=== PATIENT | female | born 1935 | race Caucasian/White ===

== ENCOUNTER 2019-02-05 17:23 | Observation (INO) | payer MEDICARE ==
[2019-02-05] MEDS ORDERED: Sodium Chloride 0.9% 10 ML Syringe FLUSH PRN (17:35)
[2019-02-05] MEDS ORDERED: Aspirin 81 MG Tab.Chew PO ONE (17:35)
--- NOTE | 2019-02-05 18:28 | CRLCR ---
INDICATION: Chest pain TECHNIQUE: Chest radiograph 1 views COMPARISON: 02/15/2014 FINDINGS: Mediastinum: The mediastinum is normal in appearance. Mild stable cardiomegaly is noted. Lung: Fine reticular opacities are present in the left lung base, likely due to senescent pulmonary fibrosis. No sign of pleural effusion seen. No pneumothorax is identified. IMPRESSIONS: 1. Mild stable cardiomegaly is noted. 2. Fine reticular opacities are present in the left lung base, likely due to senescent pulmonary fibrosis. Dictated by Sorin Rangel MD @ 02/05/2019 6:26:55 PM Dictated by: Sorin Rangel MD @ 02/05/2019 18:27:06 (Electronically Signed)
--- NOTE | 2019-02-05 19:52 | EDM.PDOC ---
ED HPI GENERAL MEDICAL PROBLEM - General Chief Complaint: Chest Pain Stated Complaint: [facility] Time Seen by Provider: 02/05/19 17:40 Source of Information: Reports: Patient History Limitations: Reports: No Limitations - History of Present Illness INITIAL COMMENTS - FREE TEXT/NARRATIVE: pt arrived with a history of 2 hours of left arm pain left jaw pain and pain by the left shoulder blade. She has been doing alot of moving and sorting. She had this pain come on suddenly and was very persistent. She just sat real still and it finally went away. She states it was very uncomfortable. Onset: Today, Sudden, Other (persistented for 2 hours. ) Duration: Hour(s): Location: Reports: Chest Associated Symptoms: Reports: Other (shoulder and arm and jaw pain. ) - Related Data Allergies Allergy/AdvReac Type Severity Reaction Status Date / Time No Known Allergies Allergy Verified 02/15/14 14:36 Home Meds: Home Meds Cyanocobalamin (Vitamin B-12) [Vitamin B-12] 1,000 mg PO DAILY 02/15/14 [History ] Furosemide 20 mg PO DAILY 02/15/14 [History] Hydroxyurea [Hydrea] 1,000 mg PO DAILY 02/15/14 [History] Multivitamin [Multivitamins] 1 tab PO DAILY 02/15/14 [History] Simvastatin 40 mg PO BEDTIME 02/15/14 [History] Warfarin Sodium 5 mg PO DAILY 02/15/14 [History] Past Medical History HEENT History: Reports: Impaired Vision Cardiovascular History: Reports: Blood Clots/VTE/DVT, Heart Failure, Hypertension Respiratory History: Reports: Bronchitis, Recurrent, Pneumonia, Recurrent [employer] WORK[employer] History: Reports: Musculoskeletal History: Reports: Fracture Social & Family History - Tobacco Use Smoking Status *Q: Never Smoker - Caffeine Use Caffeine Use: Reports: Coffee - Alcohol Use Days Per Week of Alcohol Use: 7 Number of Drinks Per Day: 1 Total Drinks Per Week: 7 - Recreational Drug Use Recreational Drug Use: No ED ROS GENERAL - Review of Systems Review Of Systems: See Below Constitutional: Reports: No Symptoms HEENT: Reports: No Symptoms Respiratory: Reports: No Symptoms Cardiovascular: Reports: Other (pain in laft jaw and left arm. She had some pain by the left shoulder blade. ) Endocrine: Reports: No Symptoms GI/Abdominal: Reports: No Symptoms : Reports: Hematuria Musculoskeletal: Reports: No Symptoms Skin: Reports: No Symptoms ED EXAM, GENERAL - Physical Exam Exam: See Below Free Text/Narrative:: prt arrived with pain in left arm, left jaw and left shoulder blade. She had this for 2 hours at home by the time she got here she was pain free. She was given asa. Exam Limited By: No Limitations General Appearance: Alert, Anxious, Other (pt had been very uncomfortable at home but she is painfree at this time. ) Ears: Normal TMs Nose: Nasal Deformity Throat/Mouth: Normal Inspection Head: Atraumatic Neck: Normal Inspection Respiratory/Chest: No Respiratory Distress, Other ( chest was clear. ) Cardiovascular: Regular Rate, Rhythm GI/Abdominal: Soft, Non-Tender (Female) Exam: Deferred Rectal (Female) Exam: Deferred Back Exam: Normal Inspection Extremities: Normal Inspection Neurological: Alert, Oriented, Normal Cognition Psychiatric: Normal Affect Course - Vital Signs Last Recorded V/S: Last Vital Signs Temp 36.1 C 02/05/19 17:42 Pulse 72 02/05/19 18:48 Resp 21 H 02/05/19 18:48 BP 146/65 H 02/05/19 18:48 Pulse Ox 95 02/05/19 18:48 - Orders/Labs/Meds Orders: Active Orders 24 hr Category Date Time Status Cardiac Monitoring [RC] .As Directed Care 02/05/19 17:35 Active EKG Documentation Completion [RC] ASDIRECTED Care 02/05/19 17:36 Active Peripheral IV Care [RC] . DIRECTED Care 02/05/19 17:36 Active Sodium Chloride 0.9% [Saline Flush] Med 02/05/19 17:35 Active 10 ml FLUSH ASDIRECTED PRN Peripheral IV Insertion Adult [OM.PC] Stat Oth 02/05/19 17:35 Ordered Saline Lock Insert [OM.PC] Stat Oth 02/05/19 17:35 Ordered EKG 12 Lead [EK] Stat Ther 02/05/19 17:36 Ordered Medication Orders Sodium Chloride (Saline Flush) 10 ml FLUSH ASDIRECTED PRN PRN Reason: Keep Vein Open Last Admin: 02/05/19 17:51 Dose: 10 ml Labs: Laboratory Tests 02/05/19 02/05/19 02/05/19 Range/Units 17:36 17:36 17:36 WBC 5.1 (4.5-11.0) K/uL RBC 3.66 (3.30-5.50) M/uL Hgb 13.6 (12.0-15.0) g/dL Hct 41.0 (36.0-48.0) % MCV 112 H (80-98) fL MCH 37 H (27-31) pg MCHC 33 (32-36) % Plt Count 272 (150-400) K/uL Neut % (Auto) 55 (36-66) % Lymph % (Auto) 33 (24-44) % [place] % (Auto) 11 H (2-6) % Eos % (Auto) 1 L (2-4) % Baso % (Auto) 0 (0-1) % PT 15.0 H (9.5-12.0) sec INR 1.42 H D (0.80-1.20) Sodium 137 L (140-148) mmol/L Potassium 3.9 (3.6-5.2) mmol/L Chloride 102 (100-108) mmol/L Carbon Dioxide 27 (21-32) mmol/L Anion Gap 11.9 (5.0-14.0) mmol/L BUN 15 (7-18) mg/dL Creatinine 0.8 (0.6-1.0) mg/dL Est Cr Clr Drug Dosing 38.94 mL/min Estimated GFR (MDRD) > 60 (>60) Glucose 83 (74-106) mg/dL Calcium 9.9 (8.5-10.1) mg/dL Total Bilirubin 0.6 (0.2-1.0) mg/dL AST 23 (15-37) U/L ALT 25 (12-78) U/L Alkaline Phosphatase 81 (46-116) U/L Troponin I < 0.017 (0.000-0.056) ng/mL Total Protein 7.8 (6.4-8.2) g/dL Albumin 4.1 (3.4-5.0) g/dL Globulin 3.7 H (2.3-3.5) g/dL Albumin/Globulin Ratio 1.1 L (1.2-2.2) Meds: Medications Generic Name Dose Route Start Last Admin Trade Name Freq PRN Reason Stop Dose Admin Sodium Chloride 10 ml 02/05/19 17:35 02/05/19 17:51 Saline Flush FLUSH 10 ml ASDIRECTED PRN Administration Keep Vein Open Discontinued Medications Generic Name Dose Route Start Last Admin Trade Name Miguel PRN Reason Stop Dose Admin Aspirin 324 mg 02/05/19 17:35 02/05/19 17:50 Aspirin PO 02/05/19 17:36 324 mg ONETIME ONE Administration - Re-Assessments/Exams Free Text/Narrative Re-Assessment/Exam: 02/05/19 20:13 pt has a history of 2 hours of pain in the left arm, left jaw and lef shoulder blade. She states this was very uncomfortable. She has had slight twings of chest pain left upper since she was here. Her ekg does not show ekg changes. Her trop was neg. Her other labs looked good. She does live alone and she is nervous about going home. Departure - Departure Time of Disposition: 20:15 Disposition: Admitted As Inpatient 67 Condition: Fair Clinical Impression: Atypical chest pain Referrals: PCP,None [Primary Care Provider] - Forms: ED Department Discharge Care Plan Goals: admit for observation and a stress test.
--- NOTE | 2019-02-05 20:23 | PCM.HP.2 ---
H&P History of Present Illness - General Date of Service: 02/05/19 Admit Problem/Dx: Admission Diagnosis/Problem Admission Diagnosis/Problem Chest pain Source of Information: Patient, Provider History Limitations: Reports: No Limitations - History of Present Illness Initial Comments - Free Text/Narative: CC: my shoulder and neck were hurting HPI: Stefany presents to the emergency room today with left shoulder, neck and upper back pain as well as left chest tightness. She reports that she walked out to the mailbox and back today and shortly after getting back to her house she developed mild achy pain in her left shoulder. This progressed to a moderate pain and it also radiates up into her neck and into her left shoulder blade. She also developed some chest heaviness but does not call it chest pain. She had associated shortness of breath and felt like her heart was pounding. She did not have nausea or diaphoresis. She has never had episodes like this in the past. Pain went away after about 2 hours of sitting down to rest. She did report that she had increased shortness of breath while going to the kitchen and back all she was resting. She did not take anything to make the pain better. She has not noticed much of a change in her functional status. She did have a very busy day yesterday and felt exhausted at the end of the day but did not have shoulder/neck pain or chest heaviness like she did today. She has been under a lot of stress getting ready to move and have a garage sale. She does not feel particularly anxious but has had some emotional moments going through her 's old things. No fevers, abdominal pain, diarrhea. Mild lower extremity edema that is worse at the end of the day and better in the morning but this is chronic. Workup in the emergency room was unremarkable. Troponin was negative and EKG did not suggest acute ischemia. Patient has a concerning story and will be admitted for chest pain rule out and stress testing. - Related Data Allergies/Adverse Reactions: Allergies Allergy/AdvReac Type Severity Reaction Status Date / Time No Known Allergies Allergy Verified 02/15/14 14:36 Home Medications: Home Meds Cyanocobalamin (Vitamin B-12) [Vitamin B-12] 1,000 mg PO DAILY 02/15/14 [History ] Furosemide 20 mg PO DAILY 02/15/14 [History] Hydroxyurea [Hydrea] 1,000 mg PO DAILY 02/15/14 [History] Multivitamin [Multivitamins] 1 tab PO DAILY 02/15/14 [History] Simvastatin 40 mg PO BEDTIME 02/15/14 [History] Warfarin Sodium 5 mg PO DAILY 02/15/14 [History] Past Medical History HEENT History: Reports: Impaired Vision Cardiovascular History: Reports: Blood Clots/VTE/DVT, Heart Failure, Hypertension Respiratory History: Reports: Bronchitis, Recurrent, Pneumonia, Recurrent 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 Denies: CAD - Tobacco Use Smoking Status *Q: Never Smoker - Caffeine Use Caffeine Use: Reports: Coffee - Alcohol Use Days Per Week of Alcohol Use: 7 Number of Drinks Per Day: 1 Total Drinks Per Week: 7 - Recreational Drug Use Recreational Drug Use: No H&P Review of Systems - Review of Systems: Review Of Systems: See Below Free Text/Narrative: A complete 12 point review of systems was obtained. Pertinent positives and negatives are noted in the history of present illness. All other systems were reviewed and were negative except as noted. Exam - Exam Exam: See Below - Vital Signs Vital Signs: Last Vital Signs Temp 36.1 C 02/05/19 17:42 Pulse 72 02/05/19 18:48 Resp 21 H 02/05/19 18:48 BP 146/65 H 02/05/19 18:48 Pulse Ox 95 02/05/19 18:48 Weight: 77.111 kg - Exam Quality Assessment: No: Supplemental Oxygen General: Alert, Oriented, Cooperative. No: Mild Distress HEENT: Conjunctiva Clear, Mucosa Moist & [place]. No: Scleral Icterus Neck: Supple, Trachea Midline. No: Lymphadenopathy Lungs: Clear to Auscultation, Normal Respiratory Effort Cardiovascular: Regular Rate, Regular Rhythm. No: Systolic Murmur GI/Abdominal Exam: Normal Bowel Sounds, Soft, Non-Tender, No Distention Extremities: Pedal Edema (mild left ankle edema ). No: Increased Warmth Skin: Warm, Dry, Wound (chronic wound, no drainage or erythema left lower leg ) Neuro Extensive - Mental Status: Alert, Oriented x3, Nl Response to Commands Neuro Extensive - Motor, Sensory, Reflexes: No: Dysarthria, Abnormal Motor, Tremor Psychiatric: Alert, Normal Affect - Patient Data Lab Results Last 24 hrs: Laboratory Results - last 24 hr 02/05/19 02/05/19 02/05/19 Range/Units 17:36 17:36 17:36 WBC 5.1 (4.5-11.0) K/uL RBC 3.66 (3.30-5.50) M/uL Hgb 13.6 (12.0-15.0) g/dL Hct 41.0 (36.0-48.0) % MCV 112 H (80-98) fL MCH 37 H (27-31) pg MCHC 33 (32-36) % Plt Count 272 (150-400) K/uL Neut % (Auto) 55 (36-66) % Lymph % (Auto) 33 (24-44) % [place] % (Auto) 11 H (2-6) % Eos % (Auto) 1 L (2-4) % Baso % (Auto) 0 (0-1) % PT 15.0 H (9.5-12.0) sec INR 1.42 H D (0.80-1.20) Sodium 137 L (140-148) mmol/L Potassium 3.9 (3.6-5.2) mmol/L Chloride 102 (100-108) mmol/L Carbon Dioxide 27 (21-32) mmol/L Anion Gap 11.9 (5.0-14.0) mmol/L BUN 15 (7-18) mg/dL Creatinine 0.8 (0.6-1.0) mg/dL Est Cr Clr Drug Dosing 38.94 mL/min Estimated GFR (MDRD) > 60 (>60) Glucose 83 (74-106) mg/dL Calcium 9.9 (8.5-10.1) mg/dL Total Bilirubin 0.6 (0.2-1.0) mg/dL AST 23 (15-37) U/L ALT 25 (12-78) U/L Alkaline Phosphatase 81 (46-116) U/L Troponin I < 0.017 (0.000-0.056) ng/mL Total Protein 7.8 (6.4-8.2) g/dL Albumin 4.1 (3.4-5.0) g/dL Globulin 3.7 H (2.3-3.5) g/dL Albumin/Globulin Ratio 1.1 L (1.2-2.2) Result Diagrams: 02/05/19 17:36 02/05/19 17:36 Imaging Impressions Last 24 hrs: CXR - images personally reviewed - lungs clear, mild cardiomegally EKG INTERPRETATION EKG Date: 02/05/19 Rhythm: NSR Rate (Beats/Min): 82 [place]: Normal P-Wave: Present QRS: Wide (NSICD) ST-T: Normal QT: Normal *Q Meaningful Use (ADM) - VTE Risk Assess *Q Each Risk Factor Represents 1 Point: Obesity ( BMI > 25 kg/m2) Total Score 1 Point Risk Factors: 1 Each Risk Factor Represents 2 Points: None Total Score 2 Point Risk Factors: 0 Each Risk Factor Represents 3 Points: Age 75 Years or Greater, History of DVT/PE Total Score 3 Point Risk Factors: 6 Each Risk Factor Represents 5 Points: None Total Score 5 Point Risk Factors: 0 Venous Thromboembolism Risk Factor Score *Q: 7 - Problem List (1) Chest pain, exertional SNOMED Code(s): 34322722 ICD Code: R07.9 - CHEST PAIN, UNSPECIFIED Status: Acute Current Visit: Yes (2) Essential hypertension SNOMED Code(s): 43312705 ICD Code: I10 - ESSENTIAL (PRIMARY) HYPERTENSION Status: Chronic Current Visit: Yes (3) History of DVT (deep vein thrombosis) SNOMED Code(s): 982656877 ICD Code: Z86.718 - PERSONAL HISTORY OF OTHER VENOUS THROMBOSIS AND EMBOLISM Status: Chronic Current Visit: Yes Problem List Initiated/Reviewed/Updated: Yes Orders Last 24hrs: Active Orders 24 hr Category Date Time Status Patient Status Manage Transfer [TRANSFER] Routine ADT 02/05/19 20:12 Ordered Cardiac Monitoring [RC] .As Directed Care 02/05/19 17:35 Active EKG Documentation Completion [RC] ASDIRECTED Care 02/05/19 17:36 Active Peripheral IV Care [RC] . DIRECTED Care 02/05/19 17:36 Active Sodium Chloride 0.9% [Saline Flush] Med 02/05/19 17:35 Active 10 ml FLUSH ASDIRECTED PRN Peripheral IV Insertion Adult [OM.PC] Stat Oth 02/05/19 17:35 Ordered Saline Lock Insert [OM.PC] Stat Oth 02/05/19 17:35 Ordered Resuscitation Status Routine Resus Stat 02/05/19 20:13 Ordered EKG 12 Lead [EK] Stat Ther 02/05/19 17:36 Ordered Medication Orders Sodium Chloride (Saline Flush) 10 ml FLUSH ASDIRECTED PRN PRN Reason: Keep Vein Open Last Admin: 02/05/19 17:51 Dose: 10 ml Assessment/Plan Comment:: ASSESSMENT AND PLAN - Chest pain - sounds very typical, started after exertion and got better with rest. Heart score is 5 suggesting moderate risk. -Cardiac monitoring -Serial troponins -Lipid panel in the morning -Pharmacological stress test in the morning Essential hypertension - blood pressure well controlled at this time. History of DVT - chronically anticoagulated but INR subtherapeutic. -Continue warfarin Maintenance issues - - DVT prophylaxis - SCDs - GI prophylaxis - not indicated - Nutrition - heart healthy diet tonight, nothing by mouth after midnight - Shea catheter - not indicated CODE STATUS - full code Admission justification - patient will be referred observation status for chest pain rule out and expedited stress testing Disposition - I would anticipate discharge home tomorrow Primary care physician - Dr Griselda Verma M.D. - Mortality Measure Prognosis:: Good
[2019-02-05] MEDS ORDERED: LORazepam 2 MG/ML SDV IVPUSH PRN (20:57)
[2019-02-05] MEDS ORDERED: Ondansetron 4 MG Tab.DIS PO PRN (20:57)
[2019-02-05] MEDS ORDERED: Acetaminophen 325 MG Tab PO PRN (20:57)
[2019-02-05] MEDS ORDERED: Morphine 2 MG/ML Syringe IVPUSH PRN (20:57)
[2019-02-05] MEDS ORDERED: Melatonin 3 MG Tab PO PRN (20:57)
[2019-02-05] MEDS ORDERED: Magnesium Hydroxide 400 MG/5 ML Susp 30 ML Cup PO PRN (20:57)
[2019-02-05] MEDS ORDERED: Ondansetron 4 MG/2 ML SDV IV PRN (20:57)
[2019-02-05] MEDS ORDERED: Simvastatin 20 MG Tab PO SCH (21:00)
[2019-02-06] MEDS ORDERED: Furosemide 20 MG Tab PO SCH (09:00)
[2019-02-06] MEDS ORDERED: Cyanocobalamin (Vitamin B12) 1,000 MCG Tab PO SCH (09:00)
[2019-02-06] MEDS ORDERED: Multivitamins with Iron/Calcium/Folic Acid/Minerals Tab PO SCH (09:00)
[2019-02-06] MEDS ORDERED: Aminophylline 250 MG/10 ML SDV IVPUSH ONE ×2 (12:02→12:05)
[2019-02-06] MEDS ORDERED: Warfarin 5 MG Tab PO SCH (13:00)
--- NOTE | 2019-02-06 13:28 | PCM.DCSUM1 ---
Discharge Summary - Hospital Course Brief History: 83-year-old female with history of hypertension who presented with left shoulder, neck and upper back pain as well as chest tightness. She was admitted for chest pain rule out and expedited stress testing. Diagnosis: Stroke: No - Discharge Data Discharge Date: 02/06/19 Discharge Disposition: Home, Self-Care 01 Condition: Good - Discharge Diagnosis/Problem(s) (1) Chest pain, exertional SNOMED Code(s): 83871290 ICD Code: R07.9 - CHEST PAIN, UNSPECIFIED Status: Acute (2) Essential hypertension SNOMED Code(s): 77656011 ICD Code: I10 - ESSENTIAL (PRIMARY) HYPERTENSION Status: Chronic (3) History of DVT (deep vein thrombosis) SNOMED Code(s): 145088626 ICD Code: Z86.718 - PERSONAL HISTORY OF OTHER VENOUS THROMBOSIS AND EMBOLISM Status: Chronic - Patient Summary/Data Hospital Course: Stefany presented to the emergency room with left shoulder, neck and upper back pain as well as chest tightness and associated shortness of breath. These were exertional symptoms that did improve with rest. Workup in the emergency room was reassuring with a normal troponin and normal EKG. Her vital signs were stable. With her concerning story she was admitted for serial troponin levels and expedited stress testing. Serial troponin levels overnight were undetectable. The patient did not have recurrence of her pain. Vital signs were stable throughout the night. By the morning after admission she has remained stable. We were able to complete a Selena scan stress test. This showed very slight inferior changes but less than 1/2 mm of depression. The nuclear medicine portion of the test did not show significant changes. Patient has been pain-free and feels safe at home at this time. She'll be discharged home. There were no medication changes. Follow-up can be as needed if symptoms return. - Patient Instructions Diet: Regular Diet as Tolerated Activity: As Tolerated Driving: May Drive Today Showering/Bathing: May Shower Notify Provider of: Fever, Increased Pain - Discharge Plan *PRESCRIPTION DRUG MONITORING PROGRAM REVIEWED*: Not Applicable *COPY OF PRESCRIPTION DRUG MONITORING REPORT IN PATIENT ANITHA: Not Applicable Home Medications: Home Meds Cyanocobalamin (Vitamin B-12) [Vitamin B-12] 1,000 mg PO DAILY 02/15/14 [History ] Furosemide 20 mg PO DAILY 02/15/14 [History] Hydroxyurea [Hydrea] 1,000 mg PO DAILY 02/15/14 [History] Multivitamin [Multivitamins] 1 tab PO DAILY 02/15/14 [History] Simvastatin 40 mg PO BEDTIME 02/15/14 [History] Warfarin Sodium 5 mg PO DAILY 02/15/14 [History] Oxygen Therapy Mode: Room Air Patient Handouts: Nonspecific Chest Pain Referrals: PCP,None [Primary Care Provider] - (f/u as needed if symptoms return ) - Discharge Summary/Plan Comment DC Time >30 min.: No - Patient Data Vitals - Most Recent: Last Vital Signs Temp 35.7 C 02/06/19 07:32 Pulse 85 02/06/19 11:35 Resp 16 02/06/19 11:35 BP 176/72 H 02/06/19 11:35 Pulse Ox 95 02/06/19 07:32 Weight - Most Recent: 78.744 kg I&O - Last 24 hours: Intake & Output 02/05/19 02/06/19 02/06/19 22:59 06:59 14:59 Intake Total 355 Output Total 200 425 Balance 155 -425 Lab Results - Last 24 hrs: Laboratory Results - last 24 hr 02/05/19 02/05/19 02/05/19 Range/Units 17:36 17:36 17:36 WBC 5.1 (4.5-11.0) K/uL RBC 3.66 (3.30-5.50) M/uL Hgb 13.6 (12.0-15.0) g/dL Hct 41.0 (36.0-48.0) % MCV 112 H (80-98) fL MCH 37 H (27-31) pg MCHC 33 (32-36) % Plt Count 272 (150-400) K/uL Neut % (Auto) 55 (36-66) % Lymph % (Auto) 33 (24-44) % [place] % (Auto) 11 H (2-6) % Eos % (Auto) 1 L (2-4) % Baso % (Auto) 0 (0-1) % PT 15.0 H (9.5-12.0) sec INR 1.42 H D (0.80-1.20) Sodium 137 L (140-148) mmol/L Potassium 3.9 (3.6-5.2) mmol/L Chloride 102 (100-108) mmol/L Carbon Dioxide 27 (21-32) mmol/L Anion Gap 11.9 (5.0-14.0) mmol/L BUN 15 (7-18) mg/dL Creatinine 0.8 (0.6-1.0) mg/dL Est Cr Clr Drug Dosing 38.94 mL/min Estimated GFR (MDRD) > 60 (>60) Glucose 83 (74-106) mg/dL Calcium 9.9 (8.5-10.1) mg/dL Total Bilirubin 0.6 (0.2-1.0) mg/dL AST 23 (15-37) U/L ALT 25 (12-78) U/L Alkaline Phosphatase 81 (46-116) U/L Troponin I < 0.017 (0.000-0.056) ng/mL Total Protein 7.8 (6.4-8.2) g/dL Albumin 4.1 (3.4-5.0) g/dL Globulin 3.7 H (2.3-3.5) g/dL Albumin/Globulin Ratio 1.1 L (1.2-2.2) Triglycerides (15-150) mg/dL Cholesterol (0-200) mg/dL LDL Cholesterol Direct (0-100) mg/dL HDL Cholesterol (40-60) mg/dL 02/05/19 02/06/19 02/06/19 Range/Units 21:53 05:00 05:11 WBC (4.5-11.0) K/uL RBC (3.30-5.50) M/uL Hgb (12.0-15.0) g/dL Hct (36.0-48.0) % MCV (80-98) fL MCH (27-31) pg MCHC (32-36) % Plt Count (150-400) K/uL Neut % (Auto) (36-66) % Lymph % (Auto) (24-44) % [place] % (Auto) (2-6) % Eos % (Auto) (2-4) % Baso % (Auto) (0-1) % PT (9.5-12.0) sec INR (0.80-1.20) Sodium 140 (140-148) mmol/L Potassium 3.8 (3.6-5.2) mmol/L Chloride 106 (100-108) mmol/L Carbon Dioxide 26 (21-32) mmol/L Anion Gap 8.2 (5.0-14.0) mmol/L BUN 13 (7-18) mg/dL Creatinine 0.7 (0.6-1.0) mg/dL Est Cr Clr Drug Dosing 46.76 mL/min Estimated GFR (MDRD) > 60 (>60) Glucose 83 (74-106) mg/dL Calcium 9.3 (8.5-10.1) mg/dL Total Bilirubin (0.2-1.0) mg/dL AST (15-37) U/L ALT (12-78) U/L Alkaline Phosphatase (46-116) U/L Troponin I < 0.017 < 0.017 (0.000-0.056) ng/mL Total Protein (6.4-8.2) g/dL Albumin (3.4-5.0) g/dL Globulin (2.3-3.5) g/dL Albumin/Globulin Ratio (1.2-2.2) Triglycerides 66 (15-150) mg/dL Cholesterol 119 (0-200) mg/dL LDL Cholesterol Direct 52 (0-100) mg/dL HDL Cholesterol 56 (40-60) mg/dL Med Orders - Current: Current Medications Acetaminophen (Tylenol) 650 mg PO Q4H PRN PRN Reason: Pain (Mild 1-3)/fever Cyanocobalamin (Vitamin B12) 1,000 mcg PO DAILY [facility] Last Admin: 02/06/19 13:24 Dose: Not Given Furosemide (Lasix) 20 mg PO DAILY [facility] Last Admin: 02/06/19 13:25 Dose: Not Given Lorazepam (Ativan) 0.5 mg IVPUSH Q4H PRN PRN Reason: Nausea/Vomiting Magnesium Hydroxide (Milk Of Magnesia) 30 ml PO Q12H PRN PRN Reason: Constipation Melatonin (Melatonin) 9 mg PO BEDTIME PRN PRN Reason: Sleep Last Admin: 02/05/19 22:42 Dose: 9 mg Morphine Sulfate (Morphine) 2 mg IVPUSH Q2H PRN PRN Reason: Chest Pain Multivitamins/Minerals (Thera M Plus) 1 tab PO DAILY [facility] Last Admin: 02/06/19 13:24 Dose: Not Given Hydroxyurea (Hydrea) (1,000 MgPom) 0 mg PO DAILY [facility] Ondansetron HCl (Zofran Odt) 4 mg PO Q6H PRN PRN Reason: Nausea able to take PO Ondansetron HCl (Zofran) 4 mg IV Q6H PRN PRN Reason: Nausea/Vomiting Senna/Docusate Sodium (Senna Plus) 1 tab PO BID PRN PRN Reason: Constipation Simvastatin (Zocor) 40 mg PO BEDTIME [facility] Last Admin: 02/05/19 21:46 Dose: 40 mg Sodium Chloride (Saline Flush) 10 ml FLUSH ASDIRECTED PRN PRN Reason: Keep Vein Open Last Admin: 02/05/19 17:51 Dose: 10 ml Warfarin Sodium (Coumadin) 5 mg PO DAILY@1300 [facility] Last Admin: 02/06/19 13:24 Dose: Not Given Discontinued Medications Aminophylline (Aminophylline) 125 mg IVPUSH ONETIME ONE Stop: 02/06/19 12:03 Last Admin: 02/06/19 12:05 Dose: 125 mg Aminophylline (Aminophylline) 125 mg IVPUSH ONETIME ONE Stop: 02/06/19 12:06 Last Admin: 02/06/19 13:24 Dose: Not Given Aspirin (Aspirin) 324 mg PO ONETIME ONE Stop: 02/05/19 17:36 Last Admin: 02/05/19 17:50 Dose: 324 mg Regadenoson (Lexiscan) 0.4 mg IVPUSH ONETIME ONE Stop: 02/06/19 11:31 Last Admin: 02/06/19 11:59 Dose: 0.4 mg - Exam Quality Assessment: Denies: Supplemental Oxygen General: Reports: Alert, Oriented, Cooperative, No Acute Distress Lungs: Reports: Normal Respiratory Effort Cardiovascular: Reports: Regular Rate, Regular Rhythm GI/Abdominal Exam: Soft, No Distention Extremities: No Pedal Edema Psy/Mental Status: Reports: Alert, Normal Affect
--- NOTE | 2019-02-06 15:42 | CRLNM ---
MYOCARDIAL PERFUSION SCAN CLINICAL HISTORY: 83-year-old female. Chest pain. History of pulmonary embolism. History of DVT. History of CHF. Hypertension. 5 feet 1 inch, 173 pounds. TECHNIQUE: Resting SPECT and stress gated SPECT with wall motion and ejection fraction) Stress: Pharmacologic Lexiscan (0.4 mg) IV Dose (Stress/Rest): 31.4 mCi/10.9 mCi Tc-99m Tetrofosmin IV Comparison: None FINDINGS: There is good uptake of activity by the left ventricle. No left ventricular enlargement is noted. There is mild soft tissue attenuation. No other significant fixed or reversible defects are identified. The gated images demonstrate a normal left ventricular ejection fraction of approximately 65 percent. No regional wall motion abnormalities are identified. IMPRESSION: 1. There is no evidence of significant myocardial ischemia or infarction. 2. Normal left ventricular ejection fraction of approximately 65 percent. DEVEN VELAZQUEZ M.D. [email or web address] [place]/Dictated by: Deven Velazquez MD @ 02/06/2019 2:12:00 PM (Electronically Signed)
--- NOTE | 2019-02-06 19:16 | STRESS ---
DATE OF SERVICE: 02/06/2019 PROPOSED PROCEDURE: Lexiscan stress test. INDICATION FOR STRESS TEST: Chest pain. PRIMARY CARE PHYSICIAN: James Villalobos MD. DESCRIPTION OF PROCEDURE: Stefany is an 83-year-old female here for an inpatient stress test. Her baseline blood pressure is 176/72 with a pulse of 67. Baseline EKG shows a sinus rhythm with a normal axis. She does have a borderline first-degree AV block, but no other significant findings. The stress test was administered per the protocol with administration of the Lexiscan followed by the Myoview. Review of the continuous EKG monitoring reveals T- wave flattening laterally and some mild T-wave flattening and mild inversions in the inferior leads. There were no changes to the ST segments other than possibly some very mild, less than 0.5 mm depression in the inferior leads with lead II most notable, but still less than 0.5 mm. The T-wave flattening improved throughout the course of the recovery phase. Her blood pressure did drop after the Lexiscan was administered with the lowest reading of 134/65 at the 4-minute jurgen of recovery. Heart rate katheryn to a maximum of 87 at the 1-minute jurgen of recovery. After the completion of the test, her blood pressure was 142/62 and her pulse was 70. Review of the installation and service technician's notes suggest that the patient did develop shortness of breath, headache, and some chest tightness after the Lexiscan was administered. She did receive 125 mg of IV aminophylline with relief of symptoms. IMPRESSION: Negative EKG portion of the stress test. The patient did have chest pain with Lexiscan administration. The nuclear medicine portion will be interpreted separately. Joe Vrema MD /[id number]
[2019-02-07] MEDS ORDERED: HYDROXYUREA 1000 MG PO SCH (09:00)
== END 2019-02-06 14:00 | disposition home or self-care (01) ==
LOC: JP.ED 17:23 → JP.MS 20:12
PROVIDERS: ADMIT Internal Medicine; ATTEND Internal Medicine
DX: R07.9 Chest pain, unspecified (principal); I11.0 Hypertensive heart disease with heart failure; I50.9 Heart failure, unspecified; Z86.718 Personal history of other venous thrombosis and embolism; Z79.899 Other long term (current) drug therapy; Z79.01 Long term (current) use of anticoagulants
CPT/HCPCS: 36415; 71045; 78452; 80048; 80053; 80061; 84484; 85025; 85610; 93005; 99285; A9270; A9500; J0280; J2785; 96374; G0378